=== PATIENT | male | born 1960 | race African-American/Black ===

== ENCOUNTER 2022-07-11 04:03 | Inpatient (IN) ==
[2022-07-11] MEDS ORDERED: MECLIZINE 25 MG TABLET PO STA (04:27)
[2022-07-11] MEDS ORDERED: ONDANSETRON 4 MG/2 ML VIAL IV STA (04:27)
[2022-07-11] MEDS ORDERED: hydrALAZINE 20 MG/1 ML VIAL IV STA (04:27)
[2022-07-11 05:12] LABS: Basophils # 0.1 10*3/uL (0.0-0.2); Eosinophils # 0.1 10*3/uL (0.0-0.87); Eosinophils % 1.8 % (0.00-10.9); Hematocrit 45.8 VOL% (42.0-52.0); Hemoglobin 15.3 GM/DL (14.0-18.0); Immature Granulocytes Absolute 0.06 #; Lymphocytes # 1.6 10*3/uL (1.4-4.0); Lymphocytes % 25.4 % (21.2-54.2); Mean Corpuscular HGB Conc 33.4 GM/DL (32-36); Mean Corpuscular Volume 93.9 FL (87-102); Mean Platelet Volume 10.2 FL (9.6-12.0); Monocytes # 0.4 10*3/uL (0.11-0.8); Neutrophils % 64.8 % (38.7-73.9); Platelet Count 204 T/CUMM (130-400); Red Blood Count 4.88 MC/CUMM (3.8-5.5); White Blood Count 6.18 T/CUMM (4-12)
[2022-07-11 05:40] LABS: Alanine Aminotransferase 33 U/L (16-61); Albumin 3.4 G/DL (3.4-5.0); Alkaline Phosphatase 146 U/L (45-117); Aspartate Amino Transferase 28 U/L (0-37); Bilirubin,Total < 0.39 MG/DL (0.20-1.00); Blood Urea Nitrogen 24 MG/DL (7-18); Calcium 9.3 MG/DL (8.5-10.1); Carbon Dioxide 27 MMOL/L (21-32); Chloride 101 MMOL/L (98-107); Glucose 352 MG/DL (74-106); Osmolality,Calculated 290.8 MOS/KG (273-304); Potassium 3.9 MMOL/L (3.5-5.1); Sodium 137 MMOL/L (136-145); Total Protein 7.9 G/DL (6.4-8.2)
[2022-07-11] MEDS ORDERED: SODIUM CHLORIDE 0.9% 500 ML IV STA (05:42)
[2022-07-11] MEDS ORDERED: INSULIN REGULAR 100 UNIT/ML SUBCUT STA (05:42)
[2022-07-11] MEDS ORDERED: hydrALAZINE 20 MG/1 ML VIAL IV PRN (06:05)
[2022-07-11] MEDS ORDERED: ONDANSETRON 4 MG/2 ML VIAL IV PRN (06:05)
[2022-07-11] MEDS ORDERED: ASPIRIN 325 MG TABLET PO STA (06:05)
[2022-07-11] MEDS ORDERED: ACETAMINOPHEN 325 MG TABLET PO PRN (06:05)
[2022-07-11] MEDS ORDERED: DEXTROSE 10% 250 ML BAG IV PRN (06:15)
[2022-07-11 06:22] LABS: Sedimentation Rate-Westergren 34 MM/HR (0-20)
[2022-07-11] MEDS ORDERED: LABETALOL 20 MG/4 ML SYRINGE IV STA (06:38)
[2022-07-11] MEDS: SODIUM CHLORIDE 0.9% 1,000 ML IV SCH ×2 (06:42→17:34)
[2022-07-11 06:49] LABS: Bacteria,Urine Occasional /HPF (Few); Bilirubin,Urine Negative (Negative); Blood, Urine Trace mg/dL (Negative); Glucose,Urine (UA) 500 mg/dL (Negative); Ketones,Urine Trace mg/dL (Negative); Nitrite,Urine Negative (Negative); Protein,Urine 100 mg/dL (Negative); RBC,Urine 1 /HPF (0-4); Squamous Epithelial Cell,Urine Occasional /HPF (0-10); Urine Appearance Clear (Clear); Urine Color Yellow (Yellow); Urine Specific Gravity 1.025 (1.001-1.035); Urine Urobilinogen 0.2 eU/dL (<2.0)
[2022-07-11 07:05] LABS: Barbiturates Screen,Urine Negative (Negative); Benzodiazepines Screen,Urine Negative (Negative); Cannabinoid Screen,Urine Negative (Negative); Opiate Screen,Urine Negative (Negative); Phencyclidine Screen,Urine Negative (Negative)
[2022-07-11] MEDS ORDERED: INSULIN LISPRO 100 UNIT/ML SUBCUT SCH (07:30)
[2022-07-11] MEDS: PANTOPRAZOLE 40 MG TABLET PO SCH (09:50)
[2022-07-11] MEDS: amLODIPine 10 MG TABLET PO SCH (09:50)
[2022-07-11] MEDS: INSULIN LISPRO 100 UNIT/ML SUBCUT SCH ×4 (09:50→23:53)
[2022-07-11] MEDS: ENOXAPARIN 40 MG/0.4 ML SYRINGE SUBCUT SCH (09:50)
[2022-07-11] MEDS ORDERED: GLUCAGON 1 MG VIAL IM PRN (11:28)
[2022-07-11] MEDS ORDERED: DEXTROSE 50% 25 GM/50 ML VIAL IV PRN (11:28)
[2022-07-12] MEDS: INSULIN LISPRO 100 UNIT/ML SUBCUT SCH ×3 (00:22→07:55)
[2022-07-12] MEDS: SODIUM CHLORIDE 0.9% 1,000 ML IV SCH (02:57)
[2022-07-12 06:36] LABS: Calcium 8.8 MG/DL (8.5-10.1); Osmolality,Calculated 282.5 MOS/KG (273-304); Potassium 3.9 MMOL/L (3.5-5.1)
[2022-07-12 08:15] VITALS: BP 167/92
[2022-07-12] MEDS: PANTOPRAZOLE 40 MG TABLET PO SCH (09:25)
[2022-07-12] MEDS: amLODIPine 10 MG TABLET PO SCH (09:25)
[2022-07-12] MEDS: ENOXAPARIN 40 MG/0.4 ML SYRINGE SUBCUT SCH (09:25)
== END 2022-07-12 10:40 | disposition home or self-care (01) | DRG 149 ==
LOC: N.ED 04:03 → N.EDINP 04:03 → N.2E 14:32
PROVIDERS: ADMIT Internal Medicine; ATTEND Internal Medicine